=== PATIENT | male | born 1995 | race Two or more races ===

== ENCOUNTER 2020-06-04 18:02 | Emergency (ER) | payer OTHER, BC ==
[~2020-06-04] VITALS: Ht 180.3 cm; Wt 67.1 kg
--- NOTE | 2020-06-04 19:20 | NUR ---
Patient discharged to home in stable condition. Written and verbal after care instructions given. Patient verbalizes understanding of instructions. Stressed follow up or return to ER for worsening s/s. Patient ambulated out of ER with steady gait, no acute signs of distress, VSS, all belongings taken.
[2020-06-04 19:21] VITALS: BP 119/88
== END 2020-06-04 19:21 | disposition home or self-care (01) ==
LOC: ER 18:06
DX: S60.222A Contusion of left hand, initial encounter (principal); W21.04XA Struck by golf ball, initial encounter; Y93.9 Activity, unspecified; Y99.8 Other external cause status
CPT/HCPCS: 73130; A4663